=== PATIENT | male | born 1980 ===

== ENCOUNTER 2021-06-10 05:54 | Inpatient (IN) ==
[2021-06-10] MEDS ORDERED: Sodium Citrate/Citric Acid LIQ 15 ML UDC PO ONE (06:00)
[2021-06-10] MEDS ORDERED: Lactated Ringers 1000 ml BAG 1,000 ML IV SCH (06:00)
[2021-06-10] MEDS ORDERED: Buffered Lidocaine 1% SYRIN 1 ml INTRADERM ONE (06:00)
[2021-06-10] MEDS ORDERED: Sodium Citrate/Citric Acid LIQ 15 ML UDC ONE (06:34)
[2021-06-10] MEDS ORDERED: Heparin 5000 UNITS/ML 1 mL VIAL ONE (06:34)
[2021-06-10] MEDS ORDERED: ceFAZolin 2 GM in NS PREMIX 2 GM/100 ML BAG IVPB ONE (06:34)
[2021-06-10] MEDS ORDERED: ceFAZolin 1 GM ADVAN 1 GM ADDV.VIAL IVPB ONE (06:34)
[2021-06-10] MEDS ORDERED: Midazolam 2 mg/2 ml VIAL 1 mg/ml 2 ml VIAL (2 mg) ONE (06:48)
[2021-06-10] MEDS ORDERED: Rocuronium 50 mg VIAL 10 mg/ml 5 ml VIAL (50 mg) ONE ×2 (06:48→09:05)
[2021-06-10] MEDS ORDERED: fentaNYL 250 mcg/5 ml 50 MCG/ML 5 ml VIAL (250 MCG) ONE (06:48)
[2021-06-10] MEDS ORDERED: Propofol 10 MG/ML 20 ML BTL ONE ×2 (06:49→08:49)
[2021-06-10] MEDS ORDERED: Lidocaine 2% PF 5 ML VIAL ONE (06:49)
[2021-06-10] MEDS ORDERED: Dexamethasone IV 4 MG/ML VIAL 1 ml VIAL ONE (06:49)
[2021-06-10] MEDS ORDERED: Methylene Blue 0.5 % 50 MG/10 ML AMP IV ONE (07:11)
[2021-06-10] MEDS ORDERED: Bupivacaine 0.25% EPI 200,000 30 ML SDV ONE (07:12)
[2021-06-10] MEDS ORDERED: Scopolamine PATCH Remove NOTE PATCH OFF ONE (08:00)
[2021-06-10] MEDS ORDERED: EPHEDrine (Pressors) 50 MG/ML VIAL ONE (08:19)
[2021-06-10] MEDS ORDERED: Phenylephrine 40 mcg/mL 10mL (400mcg) SYRINGE ONE (08:19)
[2021-06-10] MEDS ORDERED: Phenylephrine IV 10 MG/ML 1 ml VIAL ONE (08:20)
[2021-06-10] MEDS ORDERED: Acetaminophen IV 1 GM/100ML 100 ML IV PRN (08:30)
[2021-06-10] MEDS ORDERED: Naloxone 0.4 mg VIAL 0.4 mg/ml 1 ml VIAL IV PRN (08:30)
[2021-06-10] MEDS ORDERED: Ondansetron 4 mg VIAL 2 MG/ML 2 ml VIAL IV PRN ×2 (08:30→10:31)
[2021-06-10] MEDS ORDERED: HYDROmorphone 1 MG/1 ML SYRINGE IV PRN (08:30)
[2021-06-10] MEDS ORDERED: DiMENhydriNATE IV 50 mg/ml 1 ml VIAL IV PUSH PRN (08:30)
[2021-06-10] MEDS ORDERED: Sugammadex 500 MG/5 ML 5 ml VIAL IV PUSH ONE (08:35)
[2021-06-10] MEDS ORDERED: Ondansetron 4 mg VIAL 2 MG/ML 2 ml VIAL ONE ×2 (08:35→11:44)
[2021-06-10] MEDS ORDERED: fentaNYL 100 mcg/2 ml 50 MCG/ML VIAL ONE ×3 (09:08→11:01)
[2021-06-10] MEDS ORDERED: HYDROmorphone 0.5 MG/0.5 ML SYRINGE IV SLOW PU PRN (10:31)
[2021-06-10] MEDS ORDERED: HYDROcodone/ACET. 7.5/325 LIQ 15 ML UDC PO PRN (10:31)
[2021-06-10] MEDS ORDERED: Acetaminophen IV 1 GM/100ML 100 ML IV ONE (10:42)
[2021-06-10] MEDS ORDERED: DiMENhydriNATE IV 50 mg/ml 1 ml VIAL ONE (10:42)
[2021-06-10] MEDS: fentaNYL 100 mcg/2 ml 50 MCG/ML VIAL IV PRN ×2 (11:02→12:00)
[2021-06-10] MEDS: Lactated Ringers 1000 ml BAG 1,000 ML IV SCH ×2 (12:45→20:02)
[2021-06-10] MEDS: Heparin 5000 UNITS/ML 1 mL VIAL SUBCUT SCH (22:38)
[2021-06-11] MEDS: Lactated Ringers 1000 ml BAG 1,000 ML IV SCH (06:22)
[2021-06-11] MEDS: Heparin 5000 UNITS/ML 1 mL VIAL SUBCUT SCH ×2 (06:29→13:54)
[2021-06-11] MEDS: Lansoprazole SUSP ORALSYR 3 MG/ML PO SCH (09:55)
[2021-06-11] MEDS: D5W 1/2 NS KCl 20 meq 1000 ml 1,000 ML IV SCH (13:53)
[2021-06-12] MEDS: Heparin 5000 UNITS/ML 1 mL VIAL SUBCUT SCH ×2 (00:33→06:25)
[2021-06-12] MEDS: D5W 1/2 NS KCl 20 meq 1000 ml 1,000 ML IV SCH (01:33)
[2021-06-12 07:18] VITALS: BP 106/72
[2021-06-12] MEDS: Lansoprazole SUSP ORALSYR 3 MG/ML PO SCH (08:32)
== END 2021-06-12 11:05 | disposition home or self-care (01) | DRG 403 ==
LOC: AA 05:54 → SSU 10:31
PROVIDERS: ADMIT Surgery; ATTEND Surgery

== ENCOUNTER 2022-01-17 23:10 | Inpatient (IN) ==
[2022-01-17] MEDS ORDERED: Ondansetron 4 mg VIAL 2 MG/ML 2 ml VIAL IV ONE (23:54)
[2022-01-17] MEDS ORDERED: Lactated Ringers 1000 ml BAG 1,000 ML IV ONE (23:54)
[2022-01-18 00:54] LABS: ABS Lymphocytes 1.7 10^3/ul (1.0-4.8); ABS Monocytes 0.4 10^3/ul (0-0.8); ABS Neutrophils 4.9 10^3/ul (1.5-7.7); Eosinophil % 0.4 %; Hematocrit 41 % (42-52); Hemoglobin 14.2 g/dL (14.0-18.0); Mean Corpuscular HGB Conc 34 g/dL (31-36); Mean Corpuscular Hemoglobin 32 pg (27-31); Mean Corpuscular Volume 94 fL (80-94); Mean Platelet Volume 7.7 fL (7.4-10.4); Platelet Count 246 10^3/uL (150-450); Red Blood Count 4.39 10^6 /uL (4.18-5.48); Red Cell Distribution Width 14 % (10-15)
[2022-01-18] MEDS ORDERED: Morphine 4 MG/ML VIAL (1 ml) IV ONE (00:57)
[2022-01-18] MEDS ORDERED: HYDROmorphone 0.5 MG/0.5 ML SYRINGE IV ONE (01:15)
[2022-01-18 01:19] LABS: ALT 42 U/L (7-52); AST 29 U/L (13-39); Albumin 4.5 g/dL (3.2-5.2); Albumin/Globulin Ratio 2.3 (1-3); Alkaline Phosphatase 85 U/L (35-149); Anion Gap 10 mmol/L (2-11); Blood Urea Nitrogen 14 mg/dL (6-24); C Reactive Protein < 1.00 mg/L (<8.01); CO2 Carbon Dioxide 26 mmol/L (22-32); Calcium 9.3 mg/dL (8.6-10.3); Chloride 104 mmol/L (101-111); Glucose 108 mg/dL (70-100); Lipase 39 U/L (11.0-82.0); Potassium 4.2 mmol/L (3.5-5.0); Sodium 140 mmol/L (135-145); Total Protein 6.5 g/dL (6.4-8.9); eGFR CKD-EPI 95.8 (>60)
[2022-01-18] MEDS ORDERED: Iohexol 300 (CONTRAST) 10 ML SDV IV ONE (01:23)
[2022-01-18] MEDS ORDERED: Droperidol 5 MG/2 ML 2 ML VIAL IV ONE (02:16)
[2022-01-18] MEDS ORDERED: HYDROmorphone 1 MG/1 ML SYRINGE IV SLOW PU ONE (02:33)
[2022-01-18] MEDS ORDERED: Morphine 10 MG/ML VIAL (1 ml) IV ONE (03:39)
[2022-01-18] MEDS ORDERED: Heparin 5000 UNITS/ML 1 mL VIAL IV SCH (04:00)
[2022-01-18 04:11] LABS: ABS Lymphocytes 0.9 10^3/ul (1.0-4.8); ABS Monocytes 0.5 10^3/ul (0-0.8); ABS Neutrophils 9.9 10^3/ul (1.5-7.7); Hematocrit 41 % (42-52); Hemoglobin 14.1 g/dL (14.0-18.0); Lymphocyte % 8.2 %; Mean Corpuscular HGB Conc 34 g/dL (31-36); Mean Corpuscular Hemoglobin 32 pg (27-31); Mean Corpuscular Volume 94 fL (80-94); Mean Platelet Volume 8.2 fL (7.4-10.4); Platelet Count 238 10^3/uL (150-450); Red Blood Count 4.39 10^6 /uL (4.18-5.48); Red Cell Distribution Width 14 % (10-15); White Blood Count 11.3 10^3/uL (3.5-10.8)
[2022-01-18 04:31] LABS: eGFR CKD-EPI 110.8 (>60)
[2022-01-18] MEDS ORDERED: Morphine 2 MG/ML SYRINGE IV PRN (04:40)
[2022-01-18] MEDS ORDERED: Senna TAB 8.6 mg TAB PO PRN (05:01)
[2022-01-18] MEDS ORDERED: Polyethylene Glycol 3350 17 GM PACKET PO PRN (05:01)
[2022-01-18] MEDS: Heparin DRIP 25,000 UNITS BAG 25,000 UNITS/500 ML BAG IV SCH (05:24)
[2022-01-18 05:29] LABS: Urine Appearance Clear; Urine Bilirubin Negative (Negative); Urine Blood Negative (Negative); Urine Color Yellow; Urine Glucose Negative (Negative); Urine Ketones 2+ (Negative); Urine Nitrite Negative (Negative); Urine Protein Negative (Negative); Urine Specific Gravity 1.047 (1.002-1.030); Urine Urobilinogen Negative (Negative)
[2022-01-18 06:02] LABS: Fibrinogen 265.7 mg/dL (110.8-404.3); INR 1.23 (0.86-1.15)
[2022-01-18] MEDS: HYDROmorphone 1 MG/1 ML SYRINGE IV SLOW PU PRN ×5 (06:10→23:27)
[2022-01-18] MEDS ORDERED: NS 0.9% 1000 ml BAG 1,000 ML IV SCH (06:15)
[2022-01-18] MEDS ORDERED: Piperacillin/Tazobac ADVAN 3.375 GM in NS 0.9% 100 ml BAG 100 ML IV ONE (07:56)
[2022-01-18] MEDS ORDERED: Zosyn per Pharmacy NOTE FOLLOW UP SCH (08:00)
[2022-01-18] MEDS: Pantoprazole VIAL 40 MG VIAL IV SCH (09:06)
[2022-01-18] MEDS: Ondansetron 4 mg VIAL 2 MG/ML 2 ml VIAL IV PRN ×3 (09:08→17:30)
[2022-01-18 12:38] LABS: Calcium 8.9 mg/dL (8.6-10.3); Potassium 4.5 mmol/L (3.5-5.0)
[2022-01-18 12:44] LABS: eGFR CKD-EPI 111.2 (>60)
[2022-01-18] MEDS: ZOSYN 3.375 GM Q8H per EXTENDED INFUSION IV SCH ×2 (13:41→20:21)
[2022-01-18] MEDS: NS 0.9% 1000 ml BAG 1,000 ML IV SCH (17:30)
[2022-01-19] MEDS: Heparin DRIP 25,000 UNITS BAG 25,000 UNITS/500 ML BAG IV SCH (00:52)
[2022-01-19] MEDS: NS 0.9% 1000 ml BAG 1,000 ML IV SCH ×2 (00:53→08:56)
[2022-01-19] MEDS: ZOSYN 3.375 GM Q8H per EXTENDED INFUSION IV SCH ×2 (04:36→12:57)
[2022-01-19] MEDS: HYDROmorphone 1 MG/1 ML SYRINGE IV SLOW PU PRN (05:57)
[2022-01-19 06:15] LABS: ABS Lymphocytes 2.7 10^3/ul (1.0-4.8); ABS Monocytes 0.6 10^3/ul (0-0.8); ABS Neutrophils 6.1 10^3/ul (1.5-7.7); Calcium 8.7 mg/dL (8.6-10.3); Eosinophil % 0.2 %; Hematocrit 39 % (42-52); Hemoglobin 13.3 g/dL (14.0-18.0); Lymphocyte % 28.4 %; Mean Corpuscular HGB Conc 34 g/dL (31-36); Mean Corpuscular Hemoglobin 32 pg (27-31); Mean Corpuscular Volume 96 fL (80-94); Mean Platelet Volume 9.2 fL (7.4-10.4); Platelet Count 175 10^3/uL (150-450); Red Blood Count 4.11 10^6 /uL (4.18-5.48); Red Cell Distribution Width 15 % (10-15); White Blood Count 9.4 10^3/uL (3.5-10.8)
[2022-01-19 06:20] LABS: eGFR CKD-EPI 111.6 (>60)
[2022-01-19] MEDS ORDERED: HYDROmorphone 1 MG/1 ML SYRINGE IV SLOW PU PRN (08:44)
[2022-01-19] MEDS: Pantoprazole VIAL 40 MG VIAL IV SCH (08:49)
[2022-01-19] MEDS: Lactated Ringers 1000 ml BAG 1,000 ML IV SCH (11:49)
[2022-01-19] MEDS ORDERED: Propofol 10 MG/ML 20 ML BTL ONE (13:47)
[2022-01-19] MEDS ORDERED: Ondansetron 4 mg VIAL 2 MG/ML 2 ml VIAL ONE (13:47)
[2022-01-19] MEDS ORDERED: fentaNYL 250 mcg/5 ml 50 MCG/ML 5 ml VIAL (250 MCG) ONE (13:47)
[2022-01-19] MEDS ORDERED: Dexamethasone IV 4 MG/ML VIAL 1 ml VIAL ONE (13:47)
[2022-01-19] MEDS ORDERED: Rocuronium 50 mg VIAL 10 mg/ml 5 ml VIAL (50 mg) ONE ×2 (13:47→16:01)
[2022-01-19] MEDS ORDERED: Lidocaine 2% PF 5 ML VIAL ONE (13:47)
[2022-01-19] MEDS ORDERED: Midazolam 2 mg/2 ml VIAL 1 mg/ml 2 ml VIAL (2 mg) ONE (13:47)
[2022-01-19] MEDS ORDERED: Bupivacaine 0.25% EPI 200,000 30 ML SDV ONE (14:50)
[2022-01-19] MEDS ORDERED: Acetaminophen IV 1 GM/100ML 100 ML IV ONE (15:32)
[2022-01-19] MEDS ORDERED: Naloxone 0.4 mg VIAL 0.4 mg/ml 1 ml VIAL IV PRN (16:34)
[2022-01-19] MEDS ORDERED: HYDROmorphone 1 MG/1 ML SYRINGE IV PRN (16:34)
[2022-01-19] MEDS ORDERED: Ondansetron 4 mg VIAL 2 MG/ML 2 ml VIAL IV PRN (16:34)
[2022-01-19] MEDS ORDERED: fentaNYL 100 mcg/2 ml 50 MCG/ML VIAL IV PRN (16:34)
[2022-01-19] MEDS ORDERED: DiMENhydriNATE IV 50 mg/ml 1 ml VIAL IV PUSH PRN (16:34)
[2022-01-20] MEDS: Lactated Ringers 1000 ml BAG 1,000 ML IV SCH (05:57)
[2022-01-20 06:05] LABS: ABS Lymphocytes 2.5 10^3/ul (1.0-4.8); ABS Monocytes 0.7 10^3/ul (0-0.8); ABS Neutrophils 5.9 10^3/ul (1.5-7.7); Eosinophil % 0.3 %; Hematocrit 38 % (42-52); Hemoglobin 13.2 g/dL (14.0-18.0); Lymphocyte % 27.1 %; Mean Corpuscular HGB Conc 35 g/dL (31-36); Mean Corpuscular Hemoglobin 32 pg (27-31); Mean Corpuscular Volume 94 fL (80-94); Mean Platelet Volume 8.3 fL (7.4-10.4); Platelet Count 193 10^3/uL (150-450); Red Blood Count 4.08 10^6 /uL (4.18-5.48); Red Cell Distribution Width 15 % (10-15); White Blood Count 9.1 10^3/uL (3.5-10.8)
[2022-01-20 06:29] LABS: Calcium 8.8 mg/dL (8.6-10.3); Magnesium 1.9 mg/dL (1.9-2.7); eGFR CKD-EPI 108.6 (>60)
[2022-01-20] MEDS ORDERED: Magnesium Sulfate 2 gm BAG 2 GM/50 ML BAG IVPB ONE (07:17)
[2022-01-20] MEDS: Pantoprazole VIAL 40 MG VIAL IV SCH (08:54)
[2022-01-20] MEDS ORDERED: Heparin DRIP 25,000 UNITS BAG 25,000 UNITS/500 ML BAG IV SCH ×2 (10:30→16:15)
[2022-01-20] MEDS ORDERED: Heparin 5000 UNITS/ML 1 mL VIAL IV SCH ×2 (11:00→17:00)
[2022-01-20] MEDS ORDERED: Iohexol 300 (CONTRAST) 10 ML SDV IV ONE (14:26)
[2022-01-21 04:13] LABS: ABS Basophils 0.1 10^3/ul (0-0.2); ABS Eosinophils 0.2 10^3/ul (0-0.6); ABS Lymphocytes 3.5 10^3/ul (1.0-4.8); ABS Monocytes 0.5 10^3/ul (0-0.8); ABS Neutrophils 3.2 10^3/ul (1.5-7.7); Eosinophil % 2.2 %; Hematocrit 41 % (42-52); Lymphocyte % 47.4 %; Mean Corpuscular HGB Conc 34 g/dL (31-36); Mean Corpuscular Hemoglobin 32 pg (27-31); Mean Corpuscular Volume 93 fL (80-94); Mean Platelet Volume 7.7 fL (7.4-10.4); Nucleated Red Blood Cells % 0.1; Platelet Count 199 10^3/uL (150-450); Red Blood Count 4.43 10^6 /uL (4.18-5.48); Red Cell Distribution Width 14 % (10-15); White Blood Count 7.5 10^3/uL (3.5-10.8)
[2022-01-21] MEDS: Pantoprazole VIAL 40 MG VIAL IV SCH (09:07)
[2022-01-21 10:52] LABS: Protein C Activity 93 % (70 - 150)
[2022-01-21 10:57] LABS: DRVVT Screen Ratio 0.78 ratio (<1.20); LAC APTT 25 sec (25 - 37); LAC INR 1.1 (0.9-1.1); Prothrombin Time(LAC) 12.6 sec (9.4 - 12.5)
[2022-01-21 11:21] VITALS: BP 104/70
[2022-01-21 12:55] LABS: Free Protein S Antigen 81 % (65 - 160)
[2022-01-21 13:00] LABS: Act Protein C Resist Ratio 3.1 (>or=2.3)
[2022-01-21 15:41] LABS: Phospholipid Ab IgG < 9.4 GPL; Phospholipid Ab IgM, S < 9.4 MPL
[2022-01-22 11:45] LABS: Prothrombin 20210 Mutation Negative (Negative)
[2022-01-22 11:48] LABS: Factor V Leiden Mutation Negative (Negative)
== END 2022-01-21 15:56 | disposition home or self-care (01) | DRG 229 ==
LOC: ED 23:10 → EDHOLD 23:10 → SUATTDRO 01-18 04:28 → SSU 01-18 05:44 → MERGE 01-20 14:56 → UNDODISOB 01-21 15:56
PROVIDERS: ADMIT Internal Medicine; ATTEND Internal Medicine